=== PATIENT | male | born 1985 | race Native Hawaiian/Other Pacific Islander ===

== ENCOUNTER 2018-04-30 16:34 | Emergency (ER) | payer OTHER ==
[2018-04-30 16:41] VITALS: RESP 17; TEMP 98.8; O2SAT 100
[2018-04-30] MEDS ORDERED: Silver Sulfadiazine 1% Cream (20 gm) TOP STA (16:52)
[2018-04-30] MEDS ORDERED: Silver Sulfadiazine 1% CREAM (50 gm) ONE ×2 (16:53→16:55)
[2018-04-30 17:13] LABS: BASO # 0.1 K/uL (0.0-0.2); BASO % 1.2 % (0.0-2.0); EOS # 0.2 K/uL (0.0-0.7); EOS % 2.4 % (0.0-4.0); HEMOGLOBIN 14.7 g/dL (12.0-18.0); LYMPH # 2.6 K/uL (1.0-4.3); LYMPH % 28.8 % (20.0-40.0); MEAN CELL VOLUME 82.7 fl (80.0-94.0); MEAN CORPUSCULAR HEMOGLOBIN 28.3 pg (27.0-31.0); MEAN CORPUSCULAR HGB CONC 34.2 g/dL (33.0-37.0); MEAN PLATELET VOLUME 8.5 fl (7.2-11.7); MONO # 0.5 K/uL (0.0-0.8); MONO % 5.3 % (0.0-10.0); NEUT # 5.6 K/uL (1.8-7.0); NEUT % 62.3 % (50.0-75.0); NRBC % 0.1 % (0.0-0.0); RBC 5.2 Mil/uL (4.40-5.90); RED CELL DISTRIBUTION WIDTH 12.7 % (11.5-14.5)
[2018-04-30 17:22] LABS: BLOOD UREA NITROGEN 12 mg/dl (9-20); CALCIUM 9.2 mg/dL (8.4-10.2); GFR NON-AFRICAN AMERICAN > 60
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
[2018-04-30 18:36] VITALS: BP 118/100; PULSE 88
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
== END 2018-04-30 18:40 | disposition home or self-care (01) ==
LOC: H.ER 16:34
DX: T23.262A Burn of second degree of back of left hand, initial encounter (principal); T79.9XXA Unspecified early complication of trauma, initial encounter; W86.8XXA Exposure to other electric current, initial encounter
CPT/HCPCS: 16020; 80048; 85025; 96374; 99284; J2270